=== PATIENT | male | born 1985 | race Caucasian/White ===

== ENCOUNTER 2018-03-07 18:27 | Emergency (ER) | payer SELFPAY ==
[~2018-03-07] VITALS: Ht 182.9 cm; Wt 113.6 kg
[~2018-03-07 18:27] MED LIST: NO HOME MEDICATIONS
[2018-03-07 18:31] VITALS: BP 101/64; TEMP 100.7
[2018-03-07] MEDS ORDERED: CEPHALEXIN500 M1 PO (18:57)
[2018-03-07 19:23] VITALS: PULSE 100
== END 2018-03-07 19:24 | disposition home or self-care (01) ==
LOC: COL.ER 18:27
DX: L03.314 Cellulitis of groin (principal); L02.214 Cutaneous abscess of groin